=== PATIENT | male | born 1950 ===

== ENCOUNTER 2017-05-12 12:40 | Emergency (ER) | payer MEDICARE, MEDICAID ==
[2017-05-12 13:14] VITALS: BP 122/77; PULSE 88; RESP 16; TEMP 98.1; O2SAT 98
--- NOTE | 2017-05-12 13:40 | ED PDOC ---
Arrival/HPI - General Chief Complaint: Eye Problem Time Seen by Provider: 05/12/17 13:29 Historian: Patient - History of Present Illness Narrative History of Present Illness (Text): 05/12/17 13:35 A 67 year old male presents to the emergency department complaining of a growth on his left eye for the past 3 months. Patient notes tearing from left eye but denies any vision changes or pain with movement. Patient denies any fever, chills, nausea, vomiting, diarrhea, abdominal pain, chest pain, shortness of breath or any other complaints. Time/Duration: Other (3 months) Symptom Course: Unchanged Quality: Other Context: Other Past Medical History - Provider Review Nursing Documentation Reviewed: Yes - Infectious Disease Hx of Infectious Diseases: None - HEENT Hx Cataracts: Yes (Left eye removed.) - Psychiatric Hx Substance Use: No - Surgical History Hx Cataract Extraction: Yes (left eye) Family/Social History - Physician Review Nursing Documentation Reviewed: Yes Family/Social History: No Known Family HX Smoking Status: Never Smoked Hx Alcohol Use: Yes Frequency of alcohol use: Socially Hx Substance Use: No Allergies/Home Meds Allergies/Adverse Reactions: Allergies No Known Allergies Allergy (Verified 05/12/17 13:11) Home Medications: Home Meds Medication Instructions Recorded Confirmed No Known Home Med 05/12/17 05/12/17 Review of Systems - Physician Review All systems were reviewed & negative as marked: Yes - Review of Systems Constitutional: absent: Fevers, Night Sweats Eyes: Other (Growth on left eye). absent: Vision Changes, Eye Pain Respiratory: absent: SOB Cardiovascular: absent: Chest Pain Gastrointestinal: absent: Abdominal Pain, Diarrhea, Nausea, Vomiting Physical Exam Vital Signs Reviewed: Yes Vital Signs Temp Pulse Resp BP Pulse Ox 05/12/17 13:08 98.1 F 88 16 122/77 98 Temperature: Afebrile Blood Pressure: Normal Pulse: Regular Respiratory Rate: Normal Appearance: Positive for: Well-Appearing, Non-Toxic, Comfortable Pain Distress: None Mental Status: Positive for: Alert and Oriented X 3 - Systems Exam Head: Present: Atraumatic, Normocephalic Pupils: Present: PERRL Extroacular Muscles: Present: EOMI Conjunctiva: Present: Normal, Other (pterygium on medical aspect of left eye) Mouth: Present: Moist Mucous Membranes Neck: Present: Normal Range of Motion Respiratory/Chest: Present: Clear to Auscultation, Good Air Exchange. No: Respiratory Distress, Accessory Muscle Use Cardiovascular: Present: Regular Rate and Rhythm, Normal S1, S2. No: Murmurs Abdomen: Present: Normal Bowel Sounds. No: Tenderness, Distention, Peritoneal Signs Back: Present: Normal Inspection Upper Extremity: Present: Normal Inspection. No: Cyanosis, Edema Lower Extremity: Present: Normal Inspection. No: Edema Neurological: Present: GCS=15, CN II-XII Intact, Speech Normal Skin: Present: Warm, Dry, Normal Color. No: Rashes Psychiatric: Present: Alert, Oriented x 3, Normal Insight, Normal Concentration Medical Decision Making ED Course and Treatment: 05/12/17 13:35 Impression: A 67 year old male with pterygium on medical aspect of left eye. Patient notes tearing but denies any vision changes or pain with movement. - Scribe Statement The provider has reviewed the documentation as recorded by the Scribe Katie Flores Provider Scribe Attestation: All medical record entries made by the Scribe were at my direction and personally dictated by me. I have reviewed the chart and agree that the record accurately reflects my personal performance of the history, physical exam, medical decision making, and the department course for this patient. I have also personally directed, reviewed, and agree with the discharge instructions and disposition. Disposition/Present on Arrival - Present on Arrival Any Indicators Present on Arrival: No History of DVT/PE: No History of Uncontrolled Diabetes: No Urinary Catheter: No History of Decub. Ulcer: No History Surgical Site Infection Following: None - Disposition Have Diagnosis and Disposition been Completed?: Yes Diagnosis: Pterygium Disposition: HOME/ ROUTINE Disposition Time: 13:25 Condition: GOOD Discharge Instructions (ExitCare): Pterygium (ED) Additional Instructions: Thank you for letting us take care of you today. Your provider was Dr. Blackmon. You were treated for a pterygium. The emergency medical care you received today was directed at your acute symptoms. If you were prescribed any medication, please fill it and take as directed. It may take several days for your symptoms to resolve. Return to the Emergency Department if your symptoms worsen, do not improve, or if you have any other problems. Please contact your doctor or call one of the physicians/clinics you have been referred to that are listed on the Patient Visit Information form that is included in your discharge packet. Bring any paperwork you were given at discharge with you along with any medications you are taking to your follow up visit. Our treatment cannot replace ongoing medical care by a primary care provider (PCP) outside of the emergency department. Thank you for allowing the [facility] team to be part of your care today. Follow up with Dr. Johnson, the opthalmologist, for outpatient care. Referrals: Mac Johnson MD [Staff Provider] - Follow up with primary Radha Herrera DO [Primary Care Provider] - Follow up with primary
== END 2017-05-12 13:40 | disposition home or self-care (01) ==
LOC: ED 12:40
DX: H11.002 Unspecified pterygium of left eye (principal)